=== PATIENT | female | born 1975 | race Caucasian/White ===

== ENCOUNTER 2024-02-24 14:14 | Emergency (ER) | payer OTHER, SELFPAY ==
[2024-02-24 14:20] VITALS: BP 147/70; PULSE 80; RESP 16; TEMP 37.3; O2SAT 98; BMI 48.4
[2024-02-24 14:57] VITALS: BP 132/87; PULSE 74; RESP 19; O2SAT 97
--- NOTE | 2024-02-24 15:00 | XRR_ITS ---
PROCEDURE INFORMATION: Exam: XR Right Femur Exam date and time: 02/24/2024 3:23 PM Age: 48 years old Clinical indication: Injury or trauma; Fall; Blunt trauma; Thigh or upper leg; Right; Additional info: Fall/trauma TECHNIQUE: Imaging protocol: Radiologic exam of the right femur. Views: 2 views. COMPARISON: CR XR knee RT 3V* [id number] 02/24/2024 3:23 PM FINDINGS: Bones/joints: Mild osteoarthritis of the right hip joint. Complete right knee arthroplasty in adequate anatomic alignment. No evidence of hardware complications. Specifically, no evidence for hardware loosening or periprosthetic fractures. No acute fracture, dislocation, or aggressive osseous lesion. Soft tissues: No acute soft tissue findings. XR/XR femur RT min 2V* [id number] IMPRESSION: No acute skeletal pathology.
--- NOTE | 2024-02-24 15:00 | XRR_ITS ---
PROCEDURE INFORMATION: Exam: XR Right Knee Exam date and time: 02/24/2024 3:23 PM Age: 48 years old Clinical indication: Injury or trauma; Fall; Blunt trauma; Prior surgery; Surgery date: 6+ months; Surgery type: Right knee; Additional info: Trauma/fall TECHNIQUE: Imaging protocol: Radiologic exam of the right knee. Views: 3 views. COMPARISON: CR XR femur RT min 2V* [id number] 02/24/2024 3:23 PM FINDINGS: Bones/joints: Complete right knee arthroplasty in adequate anatomic alignment. No evidence of hardware complications. Specifically, no evidence for hardware loosening or periprosthetic fractures. No acute fracture, dislocation, or aggressive osseous lesion. Haziness in the suprapatellar compartment. Soft tissues: No acute soft tissue findings. XR/XR knee RT 3V* [id number] IMPRESSION: 1. Question of a small suprapatellar effusion. 2. No acute skeletal pathology or hardware complications.
--- NOTE | 2024-02-24 15:00 | XRR_ITS ---
PROCEDURE INFORMATION: Exam: XR Right Tibia and Fibula Exam date and time: 02/24/2024 3:23 PM Age: 48 years old Clinical indication: Injury or trauma; Fall; Blunt trauma; Lower leg; Right; Additional info: Trauma/fall TECHNIQUE: Imaging protocol: Radiologic exam of the right tibia and fibula. Views: 2 views. COMPARISON: CR XR knee RT 3V* [id number] 02/24/2024 3:23 PM FINDINGS: Bones/joints: Complete right knee arthroplasty in adequate anatomic alignment. No evidence of hardware complications. Specifically, no evidence for hardware loosening or periprosthetic fractures. Haziness in the suprapatellar compartment. Small posterior calcaneal enthesophyte. Small plantar calcaneal spur. No acute fracture, dislocation, or aggressive osseous lesion. Soft tissues: No acute soft tissue findings. XR/XR tibia fibula RT 2V [id number] IMPRESSION: 1. No acute skeletal pathology. 2. Concern for a small suprapatellar effusion.
--- NOTE | 2024-02-24 15:01 | ED_ITS ---
HPI - Extremity Injury (Lower) General: Chief Complaint: Extremity Injury, Lower Stated Complaint: Right leg injury Time Seen by Provider: 02/24/24 14:23 Source: patient Mode of arrival: wheelchair Limitations: no limitations History of Present Illness: Patient is a 48-year-old female presents to ED today for evaluation of a right lower extremity injury that she sustained just prior to arrival. Patient states last year she underwent a right knee arthroplasty and since then has had issues with the knee/leg spasming . She states this will occasionally cause her to fall which was the case today. She states she fell quite hard onto her right lower thigh/knee/lower leg and is complaining of significant discomfort here. She states she cannot bear weight on the extremity secondary to pain. She denies any other injury sustained during the fall. MD complaint: knee injury and leg injury Onset (ago): hour(s) Injury: Right: thigh and knee Place: home Severity: severe Relieving factors: immobilization Exacerbating factors: weight bearing, movement and palpation Context: fall and walking Associated symptoms: Reports inability to bear weight Other symptoms: none Review of Systems Musc: Reports: extremity pain, extremity swelling, joint pain and joint swelling; Denies: neck pain or back pain Skin/Breast: Reports: other (abrasions right lateral leg) Neuro: Reports: difficulty walking; Denies: numbness in extremities, weakness in extremities or sensory changes Physical Exam Const: COMMON NORMALS: patient oriented x3, no limitations and alert GENERAL APPEARANCE: cooperative and in distress (uncomfortable secondary to pain) NUTRITIONAL APPEARANCE: obese morbidly obese (BMI 48.4) Extremity: COMMON NORMALS: capillary refill normal, no clubbing, cyanosis or edema, no calf tenderness and no pedal edema GENERAL: Yes normal exam except as noted RIGHT LOWER EXTREMITY: Yes upper leg (TTP distal thigh) Right upper leg: Yes neurovascular exam (normal), Yes knee joint (pain throughout knee joint) Right knee: Yes inspection (normal gross inspection), Yes ROM (limited secondary to pain), Yes neurovascular exam (normal) and Yes other (swelling hard to appreciate due to body habitus) and Yes lower leg (abrasions right lateral lower leg) Right lower leg: Yes neurovascular exam (normal) Neuro: COMMON NORMALS: patient oriented x3, moves all extremities, no focal motor deficits and no sensory deficits noted SENSORIUM/ORIENTATION: Yes alert GAIT: Yes Unable to assess gait Skin: TRAUMA: abrasion Course Vital Signs: Vital signs: Vital Signs Temperature 99.1 F 02/24/24 14:20 Pulse Rate 74 02/24/24 14:57 Respiratory Rate 20 H 02/24/24 15:59 Blood Pressure 132/87 02/24/24 14:57 Pulse Oximetry 96 02/24/24 15:59 Oxygen Delivery Me thod Room Air 02/24/24 14:57 MDM - Extremity Injury (Lower) Medical Decision Making XR prelim reads are negative. She will be provided an DAJA wrap/crutches. Recommend RICE therapy. Recommend follow up with clinical nurse specialist when she returns home if leg is not improving. Return precautions given. XR interpretation done by ED provider, pending radiology final review Discharge Plan Discharge Patient Disposition: Home Clinical Impression: Injury of right lower extremity Qualifiers: Encounter type: initial encounter Qualified Code(s): S89.91XA - Unspecified injury of right lower leg, initial encounter Condition: Stable Prescriptions: New tramadol 50 mg tablet 50 mg PO Q6H PRN (Reason: pain) Qty: 14 0RF ibuprofen 800 mg tablet 800 mg PO Q8H PRN (Reason: pain) Qty: 20 0RF Discharge Orders: Discharge ED (Routine); Ordered 02/24/24 Ordered By: Cinda Cote Patient Instructions: Opioid Safety, Pain Management Activity Restrictions/Additional Instructions: As we discussed please follow up wtih your clinical nurse specialist when you return home if leg is not improving. Coding Level of Care Code ED [employer] for Naida Kebede
[2024-02-24] MEDS: ketorolac 60 mg/2 mL INJ IM (15:10)
[2024-02-24 15:59] VITALS: RESP 20; O2SAT 96
[2024-02-24] MEDS: HYDROmorphone 1 mg/mL INJ 1 mL IM (15:59)
[2024-02-24] MEDS: tetanus-dipt-pertussis 0.5 mL SDV IM (16:06)
== END 2024-02-24 16:34 | disposition home or self-care (01) ==
PROVIDERS: Emergency Provider Physician Assistant
DX: S80.811A Abrasion, right lower leg, initial encounter (principal); Z96.651 Presence of right artificial knee joint; W18.39XA Other fall on same level, initial encounter; Z23 Encounter for immunization
CPT/HCPCS: 73552; 73562; 73590; 90471; 90715; 96372; 99284; E0114; J1170; J1885